=== PATIENT | female | born 1995 | race Caucasian/White ===

== ENCOUNTER 2020-01-06 17:28 | Emergency (ER) | payer OTHER, SELFPAY ==
--- NOTE | ~2020-01-06 | XR_ITS ---
XR chest 2V DATE: 01/06/2020 18:23 INDICATION: Cough TECHNIQUE: 2 views COMPARISON: None FINDINGS: Normal heart size. No hilar or mediastinal enlargement. No pulmonary infiltrate or consolid ation, pleural effusion or pulmonary vascular congestion or pneumothorax is detected. IMPRESSION: No active cardiopulmonary disease Reviewed, dictated and finalized at location B. [employer]
[2020-01-06 17:58] VITALS: BP 138/94; PULSE 100; RESP 20; TEMP 37.1; O2SAT 100
--- NOTE | 2020-01-06 18:06 | ED.URI ---
HPI - URI/Sore Throat General Chief Complaint: Upper Respiratory Infection Stated Complaint: COUGH/FEVER/CHEST CONGESTION Time Seen by Provider: 01/06/20 18:07 Source: patient and RN notes reviewed History of Present Illness HPI Narrative: Patient is a 24-year-old female that presents the urgent care with complaints of fever, chest congestion, cough. Patient states been ongoing for approximately 2 weeks and is now productive and yellow. Patient states she is wheezing and does have a history of asthma and pneumonia. Patient has been using DayQuil and limiting her use of inhalers. Patient states she does not feel that she is relying on the inhaler . No other acute complaints. No acute distress noted. Patient had a plan of care. Related Data Home Medications Medication Instructions Recorded Confirmed aripiprazole [Abilifjuan c Maintena] 0 mg IM PER PKG DIR 01/06/20 01/06/20 fluoxetine mg 01/06/20 Allergies Allergy/AdvReac Type Severity Reaction Status Date / Time NKDA Allergy Mild Uncoded 01/06/20 18:05 Review of Systems Review of Systems: Narrative: CONSTITUTIONAL: Reports a fever EYES: Denies visual changes, redness, or discharge. ENT: Denies rhinorrhea, congestion, sore throat, or otalgia. CARDIOVASCULAR: Denies chest pain, palpitations, or edema. RESPIRATORY: Reports a productive cough with intermittent wheezing and dyspnea GASTROINTESTINAL: Denies abdominal pain, nausea, vomiting, or diarrhea. GENITOURINARY: Denies dysuria or hematuria. SKIN: Denies rash or itching. MUSCULOSKELETAL: Denies back pain, joint pain, or myalgia. NEUROLOGIC: Denies headache, numbness, or weakness. All other systems reviewed are negative, except as documented in HPI. [facility] Family History Family History (Updated 02/20/18 @ 12:12 by DOCTOR UNKNOWN) Mother Family history of suicide Social History Social History Smoking status: Never smoker Alcohol intake: never Comments At the time of my signature, I reviewed and agree with the nursing past medical, surgical, social, and family history. There is no relevant family history pertinent to the patient complaint. Exam Narrative: Exam Narrative: GENERAL: This is a well-nourished, well-developed patient, in no apparent distress. HEAD: normocephalic, atraumatic. EYES: PERRL. Sclera clear/white. Vision is grossly intact. EARS: External ears normal, auditory canals clear and without drainage, TMs normal without perforation. Hearing grossly intact. NOSE: External nose normal with no obvious nasal discharge, nares without redness, no rhinorrhea. THROAT: Mucous membranes moist, posterior pharynx clear. Moderate postnasal drainage NECK: Neck supple, non-tender without lymphadenopathy, masses or thyromegaly. CARDIOVASCULAR: Regular rate and rhythm without murmurs, gallops, or rubs. RESPIRATORY: Expiratory wheezes throughout with crackles to the right upper lobe SKIN: warm, intact with no suspicious lesions or rash, good texture and turgor. NEURO: awake, alert, and oriented to person, place and time. There were no obvious focal neurologic abnormalities. EXTREMITIES: No clubbing, cyanosis, or edema. Course Vital Signs Vital signs: Vital Signs Temperature 98.8 F 01/06/20 17:58 Pulse Rate 100 01/06/20 17:58 Respiratory Rate 01/06/20 17:58 Blood Pressure 138/94 H 01/06/20 17:58 Pulse Oximetry 100 01/06/20 17:58 Temperature 98.8 F 01/06/20 17:58 Pulse Rate 100 01/06/20 17:58 Respiratory Rate 01/06/20 17:58 Blood Pressure 138/94 H 01/06/20 17:58 Pulse Oximetry 100 01/06/20 17:58 Reviewed-patient is informed that they may have pre-hypertension or hypertension based on a blood pressure reading in the department. I recommend the patient call the primary care provider listed on their discharge instructions or a physician of their choice this week to arrange follow-up for further evaluation of possible pre-hypertension or hypertension. MDM -
== END 2020-01-06 18:35 | disposition home or self-care (01) ==
PROVIDERS: Emergency Provider Nurse Practitioner Family; PCP Family Medicine
DX: J40 Bronchitis, not specified as acute or chronic (principal)
CPT/HCPCS: 71046; 99213; G0463

== ENCOUNTER 2020-09-09 06:48 | Outpatient (NON) | payer OTHER, SELFPAY ==
[2020-09-09 19:05] LABS: SARS-CoV-2 RNA PCR Negative
== END 2020-09-09 06:49 ==
PROVIDERS: PCP Family Medicine; Visit Provider Physician Assistant Medical
DX: Z20.828 Contact with and (suspected) exposure to other viral communicable diseases (principal)
CPT/HCPCS: 87635; C9803; U0003

== ENCOUNTER 2020-11-18 06:54 | Outpatient (NON) | payer OTHER, SELFPAY ==
[2020-11-18 22:09] LABS: SARS-CoV-2 RNA PCR Negative
== END 2020-11-18 06:55 ==
LOC: ANHCOVIDDT 07:04
PROVIDERS: PCP Family Medicine; Visit Provider Physician Assistant Medical
DX: Z20.828 Contact with and (suspected) exposure to other viral communicable diseases (principal); R50.9 Fever, unspecified; J02.9 Acute pharyngitis, unspecified
CPT/HCPCS: 87635; C9803; U0003

== ENCOUNTER 2021-03-07 14:49 | Emergency (ER) | payer OTHER, SELFPAY ==
--- NOTE | 2021-03-07 14:52 | ED.GENADULT ---
HPI - General Adult General Chief complaint: Upper Respiratory Infection Stated complaint: Head and chest congestion Time Seen by Provider: 03/07/21 14:52 Source: patient Mode of arrival: ambulatory Limitations: no limitations History of Present Illness HPI narrative: 26-year-old female patient presents to the [facility] with complaints of cold symptoms for the past 2 to 3 days. Patient states she has had congestion, a slight productive cough, nasal congestion. Denies fevers, body aches or chills. Denies chest pain or shortness of breath. Patient states she had a cold about a month ago and thought it was about a sinus infection but did get better. Patient states she has had both vaccines for Covid denies being around anybody positive for Covid that she is aware of. Patient states the only thing that she has been taking for medication is DayQuil and NyQuil. Related Data Home Medications Medication Instructions Recorded Confirmed aripiprazole [Abilifjuan c Maintena] 0 mg IM PER PKG DIR 01/06/20 09/25/20 fluoxetine mg 01/06/20 09/25/20 Allergies Allergy/AdvReac Type Severity Reaction Status Date / Time No Known Allergies Allergy Verified 09/25/20 16:42 Review of Systems Review of Systems: Narrative: CONSTITUTIONAL: Denies fever, chills, or sweats. EYES: Denies visual changes, redness, or discharge. ENT: Positive rhinorrhea, congestion, sore throat, denies otalgia. CARDIOVASCULAR: Denies chest pain, palpitations, or edema. RESPIRATORY: Positive productive cough, denies dyspnea. GASTROINTESTINAL: Denies abdominal pain, nausea, vomiting, or diarrhea. GENITOURINARY: Denies dysuria or hematuria. SKIN: Denies rash or itching. MUSCULOSKELETAL: Denies back pain, joint pain, or myalgia. NEUROLOGIC: Denies headache, numbness, or weakness. PSYCHIATRIC: Denies anxiety or depression. [facility] Past Medical History Medical History (Updated 03/07/21 @ 15:25 by REUBEN Valero) Acute insomnia Binge eating disorder Bipolar 2 disorder Hypertension Vitamin D deficiency Family History Family History Mother Family history of suicide Social History Social History Smoking status: Never smoker Alcohol intake: never Comments At the time of my signature I agree with nursing past medical history, surgical, social, and family history. There is no relevant family history pertinent to the presenting complaint. Exam Narrative: Exam Narrative: GENERAL: Well-appearing, well-nourished, and in no acute distress. HEAD: Normocephalic, atraumatic. EYES: PERRLA and EOMI. ENT: Nares with erythema and edema noted bilaterally with right nare swollen shut, no rhinorrhea or epistaxis. Mucous membranes moist. Posterior pharynx with some postnasal drip but no swelling, exudates or lesions are present. NECK: Supple. No lymphadenopathy CHEST: Clear to auscultation. No respiratory distress. Patient able talk with her complete sentences. HEART: Regular rate and rhythm. No murmur heard. Normal peripheral pulses. ABDOMEN: Soft, nontender, nondistended, normal active bowel sounds. EXTREMITIES: Normal range of motion. No edema. SKIN: Warm, dry, no rash. NEURO: No focal deficits. Alert and oriented x3. Course Vital Signs Vital signs: Vital Signs Temperature 36.2 C L 03/07/21 15:13 Pulse Rate 120 H 03/07/21 15:13 Respiratory Rate 22 H 03/07/21 15:13 Blood Pressure 162/108 H 03/07/21 15:13 Pulse Oximetry 100 03/07/21 15:13 Temperature 36.2 C L 03/07/21 15:13 Pulse Rate 120 H 03/07/21 15:13 Respiratory Rate 22 H 03/07/21 15:13 Blood Pressure 162/108 H 03/07/21 15:13 Pulse Oximetry 100 03/07/21 15:13 Vital signs reviewed The patient has been informed that they may have pre-hypertension or Hypertension based on a BP reading in the department. I recommend that the patient call the primary care provider li
[2021-03-07 15:13] VITALS: BP 162/108; PULSE 120; RESP 22; TEMP 36.2; O2SAT 100
--- NOTE | 2021-03-07 15:35 | PC.NURSE ---
pt was aware her B/P was high . checked on both arms and cuff is correct size. pt instructed to see primary stormy for HTN
[2021-03-08 19:04] LABS: SARS-CoV-2 RNA PCR Negative
== END 2021-03-07 15:36 | disposition home or self-care (01) ==
PROVIDERS: Emergency Provider Nurse Practitioner Family; PCP Family Medicine
DX: J30.9 Allergic rhinitis, unspecified (principal); Z20.822 Contact with and (suspected) exposure to COVID-19; I10 Essential (primary) hypertension; F31.9 Bipolar disorder, unspecified
CPT/HCPCS: 99213; C9803; G0463; U0003; U0005

== ENCOUNTER 2022-03-31 09:06 | Emergency (ER) | payer BC, SELFPAY ==
--- NOTE | ~2022-03-31 | CT_ITS ---
EXAMINATION: CT abdomen pelvis wo con DATE: 03/31/2022 11:53 INDICATION: Right flank pain TECHNIQUE: Computed tomography (CT) of the abdomen and pelvis was performed without intravenous contr ast. The dose-length product (DLP) was 1738.94 mGy-cm. Automated exposure control and iterative recon struction technique were employed. COMPARISON: None FINDINGS: The lung bases are clear. The heart size is normal. The liver is diffusely low in attenuati on when compared with the spleen, consistent with hepatic steatosis. The spleen, pancreas, gallbladde r, and adrenal glands are normal. Nonobstructing stones of the right kidney measure up to 3 mm. The l eft kidney is unremarkable. No stones are identified in the ureters or bladder. There is no hydroneph rosis or hydroureter. No pathologically enlarged abdominal or pelvic lymph nodes are identified. Ther e is no free intraperitoneal gas or evidence of bowel obstruction. The appendix is normal. The IUD is positioned low in the uterus. The left antonio of the IUD appears to penetrate into, and possibly throu gh the myometrium. IMPRESSION: 1. No CT correlate for the patient's symptoms. 2. Nonobstructing right nephrolithiasis. 3. Malpositioned IUD with penetration of the left antonio into, and possibly through the myometrium. 4. Diffuse hepatic steatosis. Reviewed, dictated and finalized at location A. IMPRESSION: 1. No CT correlate for the patient's symptoms. 2. Nonobstructing right nephrolithiasis. 3. Malpositioned IUD with penetration of the left antonio into, and possibly throu gh the myometrium. 4. Diffuse hepatic steatosis.
--- NOTE | ~2022-03-31 | XR_ITS ---
EXAMINATION: XR chest 2V DATE: 03/31/2022 11:57 INDICATION: Right chest pain TECHNIQUE: PA and lateral views of the chest are obtained. COMPARISON: 01/06/2020 FINDINGS: The lungs are free of acute opacities. There is no pleural effusion or pneumothorax. The ca rdiomediastinal silhouette is normal. The visualized bones and soft tissues are unremarkable. IMPRESSION: 1. No acute cardiopulmonary abnormality. Reviewed, dictated and finalized at location A.
[2022-03-31 09:12] VITALS: BP 152/102; PULSE 114; RESP 18; TEMP 36.3; O2SAT 100
[2022-03-31 09:31] LABS: Basophils Absolute Auto 0.1 K/mm3 (0.0-0.1); Basophils Percent Auto 0.6 % (0.2-1.2); Eosinophils Absolute Auto 0.2 K/mm3 (0-0.3); Eosinophils Percent Auto 1.7 % (0-4.4); Hematocrit 42.5 % (37.0-47.0); Hemoglobin 13.5 g/dL (12.0-15.0); Immature Granulocyte Absolute 0.08 K/mm3 (0.00-0.031); Immature Granulocyte Percent A 0.7 % (0-0.5); Lymphocytes Absolute Auto 2.94 K/mm3 (0.9-3.2); Lymphocytes Percent Auto 25.5 % (18.3-44.2); Mean Corpuscular HGB Conc 31.8 g/dl (32-36); Mean Corpuscular Hemoglobin 27.1 pg (26-34); Mean Corpuscular Volume 85.3 fl (80-100); Mean Platelet Volume 10.1 fl (7.4-10.4); Monocytes Absolute Auto 0.8 K/mm3 (0.1-0.6); Neutrophils Absolute Auto 7.4 K/mm3 (1.3-6.7); Neutrophils Percent Auto 64.5 % (45.5-73.1); Platelet Count Result 354 k/mm3 (150-375); Red Blood Count 4.98 M/mm3 (4.2-5.4); Red Cell Distribution Width 15.3 % (11.5-14.5); White Blood Count 11.5 K/mm3 (4.5-10.0)
[2022-03-31 09:44] LABS: Appearance Urine Clear (Clear); Bilirubin Urine Negative (Negative); Blood Urine Negative (Negative); Color Urine Yellow (Yellow); Glucose Urine UA Negative (Negative); Ketones Urine Negative (Negative); Leukocyte Esterase Ur Negative LEU/UL (Negative); Nitrate Urine Negative (Negative); Protein Urine Negative (Negative); Urobilinogen Urine 0.2 mg/dL (<2.0)
[2022-03-31 09:45] LABS: Alanine Aminotransferase 25 U/L (6-35); Albumin Level 4.2 g/dL (3.5-5.1); Alkaline Phosphatase 79 U/L (38-126); Anion Gap 4 mmol/L (8-16); Aspartate Amino Transferase 26 U/L (14-36); Bilirubin,Total 0.3 mg/dL (0.2-1.3); Blood Urea Nitrogen 18 mg/dL (7-17); Calcium 9.2 mg/dL (8.4-10.2); Carbon Dioxide 33 mmol/L (22-30); Chloride 101 mmol/L (98-107); Estimated CRCL calculation 159 ml/min; Estimated Glomerular Filt Rate > 60; Glucose 85 mg/dL (65-110); Potassium 4.3 mmol/L (3.4-5.0); Sodium 138 mmol/L (137-145)
[2022-03-31 09:57] LABS: Add Urine Microscopic? NO
--- NOTE | 2022-03-31 11:42 | ED.BACK ---
HPI - Back Pain/Injury General Chief Complaint: Back Pain/Injury Stated Complaint: right flank pain Time Seen by Provider: 03/31/22 11:37 Source: patient Mode of arrival: ambulatory Limitations: no limitations History of Present Illness HPI Narrative: Patient is 27 years old white female complaining of right flank and right lower ribs posteriorly pain for the last 48 hours, she denies any fever, chills, nausea, vomiting, abdominal pain, new physical activities, chest pain or shortness of breath or leg pain. Patient also denies any urinary symptoms, vaginal bleeding or discharge. Patient did not take any pain medication so far. Related Data Home Medications Medication Instructions Recorded Confirmed aripiprazole [Abilifjuan c Maintena] 0 mg IM PER PKG DIR 01/06/20 03/09/22 cholecalciferol (vitamin D3) 50 50 mcg PO DAILY 03/15/21 03/09/22 mcg (2,000 unit) capsule cephalexin 500 mg capsule 500 mg PO TID cap 03/09/22 03/09/22 mupirocin 2 % topical ointment g TOPICAL 03/09/22 03/09/22 Allergies Allergy/AdvReac Type Severity Reaction Status Date / Time No Known Allergies Allergy Verified 03/31/22 12:07 Review of Systems Review of Systems: All systems reviewed & are unremarkable except as noted in HPI and below PMFSH Past Medical History Medical History Acute insomnia Binge eating disorder Bipolar 2 disorder Hypertension Morbid obesity with BMI of 60.0-69.9, adult Vitamin D deficiency Family History Family History Mother Family history of suicide Social History Social History Alcohol intake: never Exam Narrative: General appearance: Well-developed, well-nourished Skin: Normal color Head: Normocephalic, nontraumatic Eyes: Clear conjunctiva ENT: Oropharynx normal, ears normal, nose normal Neck: Supple, nontender Chest and respiratory: Airway patent, no respiratory distress, no accessory muscle use Heart: Regular rate/rhythm Abdomen: Soft, nontender, no organomegaly, quiet bowel sounds Vascular: Normal peripheral pulses, normal capillary refill. Musculoskeletal: Mild to moderate tenderness of the right back at the level of the lower ribs and flank area. No bruises, no swelling, no rash Neurologic: Alert and oriented ?3, [employer] is normal as tested, no gross motor deficit Course Consultations Consultation #1: DR STATEN. Mujica can be discharged home as long as is hemodynamically stable, she can follow-up with [facility] or call my office for appointment. Date: 03/31/22 Time: 13:35 Vital Signs Vital signs: Vital Signs Temperature 36.3 C L 03/31/22 09:12 Pulse Rate 114 H 03/31/22 09:12 Respiratory Rate 18 03/31/22 09:12 Blood Pressure 152/102 H 03/31/22 09:12 Pulse Oximetry 100 03/31/22 09:12 Temperature 36.3 C L 03/31/22 09:12 Pulse Rate 114 H 03/31/22 09:12 Respiratory Rate 18 03/31/22 09:12 Blood Pressure 152/102 H 03/31/22 09:12 Pulse Oximetry 100 03/31/22 09:12 MDM - Back Pain/Injury Lab Data Result diagrams: 03/31/22 09:18 03/31/22 09:19 Labs: Lab Results 03/31/22 03/31/22 03/31/22 Range/Units 09:18 09:19 09:30 WBC 11.5 H (4.5-10.0) K/mm3 RBC 4.98 (4.2-5.4) M/mm3 Hgb 13.5 (12.0-15.0) g/dL Hct 42.5 (37.0-47.0) % MCV 85.3 (80-100) fl MCH 27.1 (26-34) pg MCHC 31.8 L (32-36) g/dl RDW 15.3 H (11.5-14.5) % Plt Count 354 (150-375) k/mm3 MPV 10.1 (7.4-10.4) fl Immature Gran % (Auto) 0.7 H (0-0.5) % Neut % (Auto) 64.5 (45.5-73.
[2022-03-31] MEDS: IBUPROFEN 600 MG TABLET PO (11:58)
[2022-03-31] MEDS: ACETAMINOPHEN 500 MG TABLET 1000 MG PO (11:59)
[2022-03-31 13:41] VITALS: BP 159/98; PULSE 98; RESP 17; O2SAT 99
== END 2022-03-31 13:43 | disposition home or self-care (01) ==
PROVIDERS: Emergency Provider Emergency Medicine; PCP Family Medicine
DX: T83.32XA Displacement of intrauterine contraceptive device, initial encounter (principal); R10.9 Unspecified abdominal pain; I10 Essential (primary) hypertension; E55.9 Vitamin D deficiency, unspecified; E66.01 Morbid (severe) obesity due to excess calories; Z68.43 Body mass index [BMI] 50.0-59.9, adult; F31.81 Bipolar II disorder; K76.0 Fatty (change of) liver, not elsewhere classified; N20.0 Calculus of kidney; Y76.2 Prosthetic and other implants, materials and accessory obstetric and gynecological devices associated with adverse incidents
CPT/HCPCS: 36415; 71046; 74176; 80053; 81003; 81025; 85025; 99284; A9270

== ENCOUNTER 2022-04-14 07:20 | Emergency (ER) | payer BC, SELFPAY ==
--- NOTE | ~2022-04-14 | XR_ITS ---
EXAMINATION: XR lumbar spine min 4V DATE: 04/14/2022 07:48 INDICATION: Right-sided back pain. TECHNIQUE: 5 views of lumbar spine were obtained. COMPARISON: CT abdomen and pelvis 03/31/2022 FINDINGS: There is 3 degrees dextrocurvature of lumbar spine. There is mild chronic anterior wedging of T11 vertebral body. There is mildly decreased disc height at T11-T12. There is multilevel mild fac et joint osteoarthritis. IMPRESSION: 1. Mild thoracolumbar spondylosis. Reviewed, dictated and finalized at location A.
[2022-04-14 07:29] VITALS: BP 160/103; PULSE 108; RESP 20; TEMP 36.6; O2SAT 99
[2022-04-14] MEDS: KETOROLAC (*BKC) 60 MG/2 ML VIAL IM (08:01)
--- NOTE | 2022-04-14 09:06 | ED.BACK ---
HPI - Back Pain/Injury General Chief Complaint: Back Pain/Injury Stated Complaint: flank pain Time Seen by Provider: 04/14/22 07:32 Source: patient Mode of arrival: ambulatory Limitations: no limitations History of Present Illness HPI Narrative: 27-year-old with a history of hypertension, morbid obesity here with complaints of back pain since this morning. Patient states that she coughed and she felt sudden onset of pain in the back. She states that she had a IUD removed recently and was buried into her uterus. She denies any vaginal bleeding or discharge denies urinary symptoms. She states that she was seen in the ER for back pain a week ago. MD elicited complaint: back pain Pertinent past history: prior back pain Onset (ago): day(s) (1) Timing: constant Severity: moderate Quality: aching Location: lumbar spine Radiation: none Exacerbating factors: movement and supine positioning Relieving factors: none Context: other (Coughing) Associated symptoms: denies other symptoms Related Data Allergies Allergy/AdvReac Type Severity Reaction Status Date / Time No Known Allergies Allergy Verified 04/06/22 13:43 Review of Systems Review of Systems: All systems reviewed & are unremarkable except as noted in HPI and below Constitutional: Constitutional: Reports no additional constitutional complaints Eyes: Eyes: Reports no additional eye complaints ENT: Reports system reviewed and no additional complaints, except as documented Cardiovascular: Cardiovascular: Reports no additional cardiovascular complaints Respiratory: Respiratory: Reports no additional respiratory complaints Gastrointestinal: Gastrointestinal: Reports no additional gastrointestinal complaints Genitourinary: Genitourinary: Reports no additional female genitourinary complaints Musculoskeletal: Musculoskeletal: Reports as per HPI Neurologic: Reports system reviewed and no additional complaints, except as documented [facility] Past Medical History Medical History Acute insomnia Asthma Binge eating disorder Bipolar 2 disorder Hepatic steatosis Hypertension Kidney stone Morbid obesity with BMI of 60.0-69.9, adult Vitamin D deficiency Family History Family History Mother Family history of suicide Other Breast cancer Depression Heart disease Testicle cancer Social History Social History Smoking status: Never smoker Alcohol intake: current Substance use: never Exam Narrative: GENERAL: Well-appearing, obese, and in no acute distress. HEAD: Normocephalic, atraumatic. EYES: PERRLA and EOMI. NECK: Supple. CHEST: Clear to auscultation. No respiratory distress. HEART: Regular rate and rhythm. No murmur heard. Normal peripheral pulses. ABDOMEN: Soft, nontender, nondistended, normal active bowel sounds. No CVA tenderness EXTREMITIES: Normal range of motion. No edema. SKIN: Warm, dry, no rash. NEURO: No focal deficits. Alert and oriented x3. PSYCH: Normal mood and affect. Course Course Emergency Course: Inform patient about her x-ray findings. Advised her to take pain medication as scribed, consider physical therapy. Weight reduction advised. Vital Signs Vital signs: Vital Signs Temperature 36.6 C 04/14/22 07:29 Pulse Rate 108 H 04/14/22 07:29 Respiratory Rate 20 04/14/22 07:29 Blood Pressure 160/103 H 04/14/22 07:29 Pulse Oximetry 99 04/14/22 07:29 Oxygen Delivery Room Air 04/14/22 07:29 Temperature 36.6 C 04/14/22 07:29 Pulse Rate 108 H 04/14/22 07:29 Respiratory Rate 20 04/14/22 07:29 Blood Pressure 160/103 H 04/14/22 07:29 Pulse Oximetry 99 04/14/22 07:29 Oxygen Delivery Room Air 04/14/22 07:29 MDM - Back Pain/Injury Medical Records Attestation: I reviewed the patient's medical records. Imaging Data
== END 2022-04-14 09:20 | disposition home or self-care (01) ==
PROVIDERS: Emergency Provider Family Medicine; PCP Family Medicine
DX: M54.50 Low back pain, unspecified (principal); E66.01 Morbid (severe) obesity due to excess calories; Z68.43 Body mass index [BMI] 50.0-59.9, adult; J45.909 Unspecified asthma, uncomplicated; I10 Essential (primary) hypertension; E55.9 Vitamin D deficiency, unspecified; Z87.442 Personal history of urinary calculi; M47.895 Other spondylosis, thoracolumbar region
CPT/HCPCS: 72110; 96372; 99283; J1885

== ENCOUNTER → 2022-08-02 14:53 | Outpatient (CLI) | payer OTHER, SELFPAY ==
--- NOTE | ~2022-08-02 | XR_ITS ---
EXAMINATION: XR thoracic spine 3V, XR lumbar spine 2-3V DATE: 08/02/2022 15:24 INDICATION: Dorsalgia TECHNIQUE: 1. One AP, lateral and lateral swimmer's views of the thoracic spine were obtained. 2. AP, lateral and coned-down lateral lumbosacral views of the lumbar spine were obtained. COMPARISON: CTA abdomen and pelvis dated 03/31/2022 FINDINGS: Thoracic spine: 6 degrees upper thoracic levocurvature. Sagittal alignment is normal. Chronic mild anterior wedging a t T10 and T11, minimal at T8 and T12. Multilevel mild disc height loss throughout the mid and lower t horacic spine. Small lung volumes. No focal airspace opacities, pulmonary edema, pleural effusion or pneumothorax. Cardiomediastinal silhouette is normal. Lumbar spine: 3 degrees lumbar levocurvature. Sagittal alignment is normal. Vertebral body heights are normal. Mild disc height loss at T12-L1. The more caudal lumbar disc heights are normal. Mild osteoarthritis at t he lumbar facet and bilateral sacroiliac joints. Normal bowel gas pattern. IMPRESSION: 1. Mild thoracic and minimal lumbar spondylosis. Reviewed, dictated and finalized at location A. IMPRESSION: 1. Mild thoracic and minimal lumbar spondylosis.
== END ==
PROVIDERS: PCP Physician Assistant; Visit Provider Physician Assistant
DX: M47.894 Other spondylosis, thoracic region (principal); M47.896 Other spondylosis, lumbar region
CPT/HCPCS: 72072; 72100

== ENCOUNTER 2022-08-18 15:46 | Outpatient (CLI) | payer OTHER, SELFPAY ==
--- NOTE | ~2022-08-18 | MR_ITS ---
EXAMINATION: MR thoracic spine wo con DATE: 08/18/2022 16:37 INDICATION: Back pain TECHNIQUE: Magnetic resonance imaging (MRI) of the thoracic spine was performed without intravenous c ontrast. Sagittal localizer T1-weighted FSE of the cervicothoracic spine was obtained. Thoracic spine sequences included sagittal T2-weighted FSE, sagittal T1-weighted SE, Sagittal T2-weighted FS FSE, a nd axial T2-weighted FSE. COMPARISON: There are 6 spine radiographs dated 08/02/2022 FINDINGS: Alignment is normal. Mild likely physiologic anterior wedging [id number]. Schmorl's nodes along the en dplates at both sides of theT6-T7 and T11-T12 disc spaces. Mild fibrofatty degenerative endplate jenkins ges anteriorly at both sides of the T9-T10 disc space and mild fibrovascular degenerative endplate ch anges at the anterior inferior endplate of T10. Marrow signal is otherwise unremarkable. Moderate dis c height loss at T5-T6 through T8-T9 as well as at T11-T12. Mild disc height loss at the remaining th oracic levels. Right paracentral disc protrusion at T4-T5and T8-T9, both resulting in minimal central canal stenosis but indenting the right ventral surface of the cord at both levels. Left foraminal zo ne disc protrusion at T1-T2 contributing to mild neural foraminal stenosis at this level. Minimal dis c bulge at T11-T12. There is normal spinal cord signal. Severe facet osteoarthritis on the right at T 8-T9 resulting in mild neural foraminal stenosis at this level. Additional multilevel bilateral mild to moderate thoracic facet osteoarthritis without significant neural foraminal stenosis. Cervical sof t tissues are unremarkable. IMPRESSION: 1. Mild to moderate thoracic spondylosis. Reviewed, dictated and finalized at location A.
--- NOTE | ~2022-08-18 | MR_ITS ---
EXAMINATION: MR lumbar spine wo con DATE: 08/18/2022 16:46 INDICATION: Back pain TECHNIQUE: Magnetic resonance imaging (MRI) of the lumbar spine was performed without intravenous con trast. Sequences included sagittal T2-weighted FSE, sagittal T2-weighted FS FSE, sagittal T1-weighted FSE, and axial T2-weighted FSE. COMPARISON: None FINDINGS: 2 mm retrolisthesis L3 on L4, 3 mm retrolisthesis L4 on L5 and 3-4 mm retrolisthesis L5 on S1. Chroni c mild likely physiologic anterior wedging at T12. Lumbar vertebral body heights are normal. Normal b one marrow signal throughout. Moderate disc height loss at T11-T12. Lumbar vertebral body heights are normal. There is increased fluid signal centrally within the L5-S1 disc with posterior annular fissu re. The conus medullaris terminates at L1-L2. There is normal signal in the caudal spinal cord. Parav ertebral soft tissues are unremarkable. The following disc levels are specifically discussed: T12-L1: The disc does not extend beyond the endplate margin. There is mild bilateral facet joint oste oarthritis. There is no neural foraminal stenosis. There is no central canal stenosis. L1-L2: The disc does not extend beyond the endplate margin. There is mild to moderate bilateral facet joint osteoarthritis. There is no neural foraminal stenosis. There is no central canal stenosis. L2-L3: The disc does not extend beyond the endplate margin. There is mild left and mild to moderate r ight facet joint osteoarthritis. There is no neural foraminal stenosis. There is no central canal timothy nosis. L3-L4: Small left foraminal zone disc protrusion. There is mild to moderate bilateral facet joint ost eoarthritis. There is mild left and minimal right neural foraminal stenosis. There is no central alberto l stenosis. L4-L5: The disc does not extend beyond the more posterior L4 endplate margin. There is mild to modera te bilateral facet joint osteoarthritis. There is normal bilateral neural foraminal stenosis. There i s mild central canal stenosis. L5-S1: The disc does not extend beyond the more posterior L5 endplate margin. There is mild left and moderate right facet joint osteoarthritis. There is mild bilateral neural foraminal stenosis. There i s no central canal stenosis. IMPRESSION: 1. Minimal to mild lumbar spondylosis. Reviewed, dictated and finalized at location A.
== END 2022-08-18 15:47 ==
PROVIDERS: PCP Family Medicine; Visit Provider Physician Assistant
DX: M47.894 Other spondylosis, thoracic region (principal); M47.896 Other spondylosis, lumbar region
CPT/HCPCS: 72146; 72148

== ENCOUNTER 2023-07-07 16:03 | Outpatient (CLI) | payer OTHER, SELFPAY ==
[2023-07-07 18:24] LABS: Basophils Absolute Auto 0.1 K/mm3 (0.0-0.1); Basophils Percent Auto 0.5 % (0.2-1.2); Eosinophils Absolute Auto 0.1 K/mm3 (0-0.3); Eosinophils Percent Auto 1.1 % (0-4.4); Hematocrit 41.7 % (37.0-47.0); Hemoglobin 13.5 g/dL (12.0-15.0); Immature Granulocyte Absolute 0.02 K/mm3 (0.00-0.031); Immature Granulocyte Percent A 0.2 % (0-0.5); Lymphocytes Absolute Auto 2.13 K/mm3 (0.9-3.2); Lymphocytes Percent Auto 22.6 % (18.3-44.2); Mean Corpuscular HGB Conc 32.4 g/dl (32-36); Mean Corpuscular Hemoglobin 27.9 pg (26-34); Mean Corpuscular Volume 86.2 fl (80-100); Mean Platelet Volume 10.9 fl (7.4-10.4); Monocytes Absolute Auto 0.5 K/mm3 (0.1-0.6); Monocytes Percent Auto 5.7 % (2.6-8.5); Neutrophils Absolute Auto 6.6 K/mm3 (1.3-6.7); Neutrophils Percent Auto 69.9 % (45.5-73.1); Platelet Count Result 303 k/mm3 (150-375); Red Blood Count 4.84 M/mm3 (4.2-5.4); Red Cell Distribution Width 13.2 % (11.5-14.5); White Blood Count 9.4 K/mm3 (4.5-10.0)
[2023-07-07 18:39] LABS: Anion Gap 10 mmol/L (8-16); Blood Urea Nitrogen 11 mg/dL (7-17); Calcium 9.1 mg/dL (8.4-10.2); Carbon Dioxide 27 mmol/L (22-30); Chloride 101 mmol/L (98-107); Cholesterol 178 mg/dL (0-200); Estimated Glomerular Filt Rate > 60; Glucose 89 mg/dL (65-110); HDL Direct 43 mg/dL; Potassium 3.9 mmol/L (3.4-5.0); Sodium 138 mmol/L (137-145); Triglycerides 163 mg/dL (<150)
[2023-07-07 18:56] LABS: LDL Cholesterol Direct 99 mg/dL
== END 2023-07-07 16:04 | disposition home or self-care (01) ==
LOC: ANHGOSHLAB 16:04
PROVIDERS: PCP Family Medicine; Visit Provider Nurse Practitioner Family
DX: R22.9 Localized swelling, mass and lump, unspecified (principal); E66.01 Morbid (severe) obesity due to excess calories; Z68.44 Body mass index [BMI] 60.0-69.9, adult
CPT/HCPCS: 36415; 80048; 80061; 85025

== ENCOUNTER 2023-07-14 10:57 | Outpatient (CLI) | payer OTHER, SELFPAY ==
--- NOTE | ~2023-07-14 | US_ITS ---
EXAMINATION: US soft tissue head and neck DATE: 07/14/2023 11:16 INDICATION: Left neck mass. TECHNIQUE: Multiple grayscale and Doppler ultrasound images of the neck were obtained. COMPARISON: None FINDINGS: There are normal lymph nodes in left neck in the patient's area of concern. IMPRESSION: 1. No abnormal neck mass or lymphadenopathy in the patient's area of concern. Reviewed, dictated and finalized at location A.
== END 2023-07-14 10:58 ==
PROVIDERS: PCP Family Medicine; Visit Provider Nurse Practitioner Family
DX: R22.1 Localized swelling, mass and lump, neck (principal)
CPT/HCPCS: 76536

== ENCOUNTER 2023-08-28 10:34 | Outpatient (CLI) | payer OTHER, SELFPAY ==
--- NOTE | ~2023-08-28 | XR_ITS ---
XR hip LT 2V w AP pelvis 08/28/2023 10:47 Indication: Left knee pain Procedure: 3 views left hip including AP pelvis Comparison: No prior studies for comparison. Findings: Pelvic rings are intact. No fracture, subluxation or dislocation. Sacral foramen are symmet clinton. No significant joint space narrowing. No focal soft tissue abnormality. No foreign bodies. Impression: 1: No acute bone or joint abnormality. Reviewed, dictated and finalized at location B. Impression: 1: No acute bone or joint abnormality.
== END 2023-08-28 10:35 ==
PROVIDERS: PCP Family Medicine; Visit Provider Nurse Practitioner Family
DX: M25.552 Pain in left hip (principal)
CPT/HCPCS: 73502

== ENCOUNTER 2025-05-13 13:38 | Outpatient (CLI) | payer OTHER, SELFPAY ==
[2025-05-13 19:07] LABS: Basophils Absolute Auto 0.1 K/mm3 (0.0-0.1); Basophils Percent Auto 0.7 % (0.2-1.2); Eosinophils Absolute Auto 0.1 K/mm3 (0-0.3); Eosinophils Percent Auto 1.5 % (0-4.4); Hematocrit 39.3 % (37.0-47.0); Hemoglobin 12.3 g/dL (12.0-15.0); Immature Granulocyte Absolute 0.01 K/mm3 (0.00-0.031); Immature Granulocyte Percent A 0.1 % (0-0.5); Lymphocytes Absolute Auto 1.69 K/mm3 (0.9-3.2); Lymphocytes Percent Auto 23.1 % (18.3-44.2); Mean Corpuscular HGB Conc 31.3 g/dl (32-36); Mean Corpuscular Hemoglobin 25.9 pg (26-34); Mean Corpuscular Volume 82.9 fl (80-100); Mean Platelet Volume 11.4 fl (7.4-10.4); Monocytes Absolute Auto 0.4 K/mm3 (0.1-0.6); Monocytes Percent Auto 5.9 % (2.6-8.5); Neutrophils Percent Auto 68.7 % (45.5-73.1); Platelet Count Result 321 k/mm3 (150-375); Red Blood Count 4.74 M/mm3 (4.2-5.4); Red Cell Distribution Width 14.9 % (11.5-14.5); White Blood Count 7.3 K/mm3 (4.5-10.0)
[2025-05-13 19:33] LABS: Free T3 3.62 pg/mL (2.32-6.09); Free T4 Free Thyroxine 0.96 ng/dL (0.78-2.19)
[2025-05-13 20:39] LABS: Chloride 102 mmol/L (98-107)
[2025-05-13 20:44] LABS: Alanine Aminotransferase 22 U/L (6-35); Albumin Level 4.2 g/dL (3.5-5.1); Alkaline Phosphatase 80 U/L (38-126); Anion Gap 8 mmol/L (4-12); Aspartate Amino Transferase 39 U/L (14-36); Bilirubin,Total 0.2 mg/dL (0.2-1.3); Blood Urea Nitrogen 12 mg/dL (7-17); CRP 0.7 mg/dL (<1.0); Calcium 9.4 mg/dL (8.4-10.2); Carbon Dioxide 29 mmol/L (22-30); Estimated Glomerular Filt Rate > 60; Glucose 87 mg/dL (65-110); Potassium 4.5 mmol/L (3.4-5.0); Sodium 139 mmol/L (137-145); Total Protein 7.5 g/dL (6.3-8.2)
[2025-05-15 06:39] LABS: ANA Cascade Screen NEGATIVE (NEGATIVE)
== END 2025-05-13 13:39 | disposition home or self-care (01) ==
LOC: ANHGOSHLAB 13:38
PROVIDERS: PCP Family Medicine; Visit Provider Nurse Practitioner Family
DX: F31.62 Bipolar disorder, current episode mixed, moderate (principal); R53.83 Other fatigue; R59.1 Generalized enlarged lymph nodes; M25.50 Pain in unspecified joint; R23.2 Flushing
CPT/HCPCS: 36415; 80053; 82607; 84439; 84443; 84481; 85025; 86038; 86140; 86225; 86235; 86364